=== PATIENT | male | born 1975 | race Caucasian/White ===

== ENCOUNTER 2022-05-18 13:37 | Emergency (ER) | payer SELFPAY ==
[2022-05-18 14:39] VITALS: BP 133/90; PULSE 97; RESP 16; TEMP 36.7; O2SAT 97; BMI 24.3
--- NOTE | 2022-05-18 16:43 | XRR_ITS ---
PROCEDURE INFORMATION: Exam: XR Right Ribs with PA Chest Exam date and time: 05/18/2022 4:52 PM Age: 46 years old Clinical indication: Other: RT. Anterior rib pain; Additional info: Right rib pain and cough TECHNIQUE: Imaging protocol: Radiologic exam of the Right ribs with PA chest. Views: 3 views COMPARISON: No relevant prior studies available. FINDINGS: Lungs: Unremarkable. No consolidation. Pleural spaces: Unremarkable. No pleural effusion. No pneumothorax. Heart/Mediastinum: Unremarkable. No cardiomegaly. Bones/joints: Unremarkable. XR/XR ribs RT mn 3V w CXR1V [id number] IMPRESSION: No acute findings.
--- NOTE | 2022-05-18 17:01 | W.ED.GENADLT ---
HPI - General Adult General: Chief complaint: General Medical Stated complaint: rib pain, SOB Time Seen by Provider: 05/18/22 17:01 History of Present Illness: 46-year-old male patient comes in today with complaints of right anterior rib pain. Patient reports movement exacerbates the pain. Patient is very guarded with movement of the chest wall. Patient denies any fever. Patient reports pains been going on for about 1 to 2 weeks, but has worsened over the last 2 days. Associated symptoms: Reports chest pain; Deny dyspnea Review of Systems Const: Denies: fever(s) Card: Reports: chest pain Resp: Denies: dyspnea Physical Exam Const: COMMON NORMALS: alert HENMT: COMMON NORMALS: normocephalic HEAD & SCALP: normocephalic Neck/C-Spine: COMMON NORMALS: full ROM Chest: CHEST: Yes tenderness (Right anterior chest wall pain) Resp: COMMON NORMALS: normal respiratory effort and clear to auscultation bilaterally AUSCULTATION: clear to auscultation bilaterally Cardio: COMMON NORMALS: regular rate and regular rhythm RATE: regular rate RHYTHM: regular rhythm GI: COMMON NORMALS: non-tender Extremity: COMMON NORMALS: normal to inspection and full ROM Neuro: SENSORIUM/ORIENTATION: Yes alert Skin: COMMON NORMALS: turgor normal GENERAL SKIN EXAM: turgor normal Course Vital Signs: Vital signs: Vital Signs Temperature 98.1 F 05/18/22 14:39 Pulse Rate 97 05/18/22 14:39 Respiratory Rate 16 05/18/22 14:39 Blood Pressure 133/90 05/18/22 14:39 Pulse Oximetry 97 05/18/22 14:39 Oxygen Delivery Ne thod 05/18/22 14:39 MDM - General Adult Medical Decision Making 46-year-old male patient comes in with right anterior chest wall pain. On exam lungs are clear to auscultation. Patient has tenderness in the right anterior chest wall with reproducible pain on palpation and movement such as deep inspiration. Vital signs are normal. Differential diagnosis includes but not limited to pleurisy, pneumonia, costochondritis, rib fracture. X-rays of the chest noted no pneumonia or rib fractures. Patient appears to have chest wall/costochondritis type pain. We will give a dose of dexamethasone 10 mg IM for inflammation. Patient was given 30 mg of ketorolac for pain. Patient be continued on diclofenac and hydrocodone for severe pain. Lab Data Radiology Impressions Ribs X-Ray 05/18/22 16:43 IMPRESSION: No acute findings. Discharge Plan Discharge Patient Disposition: Home Clinical Impression: Costochondritis Condition: Stable Prescriptions: New diclofenac sodium 75 mg tablet,delayed release (DR/EC) 75 mg PO BID Qty: 20 0RF hydrocodone-acetaminophen 5-325 mg tablet 1 tab PO Q6H PRN (Reason: pain (scale score 7-10)) Qty: 7 0RF Discharge Orders: Discharge ED (Routine); Ordered 05/18/22 Ordered By: Ed Blanchard Discharge Diet: Usual diet Discharge Activity: Increase activity as tolerated Patient Instructions: Costochondritis (ED), Opioid Safety Activity Restrictions/Additional Instructions: Activity as tolerated. Use acetaminophen to help control pain. Take diclofenac routinely twice a day for pain and inflammation. Use hydrocodone 1 tablet every 6 hours for severe pain. Follow-up with primary care as needed. Return to ED for worsening symptoms such as increased shortness of breath, fever greater than 100.4, blood in sputum or new concerns. Coding Level of Care Code ED Stone Splitter for Hannah Holland
[2022-05-18] MEDS: ketorolac 30 mg/mL INJ IM (17:27)
[2022-05-18] MEDS: dexamethasone 10 mg/mL INJ IM (17:27)
== END 2022-05-18 17:27 | disposition home or self-care (01) ==
PROVIDERS: Emergency Provider Nurse Practitioner Family
DX: M94.0 Chondrocostal junction syndrome [Tietze] (principal)
CPT/HCPCS: 71101; 96372; 99284; J1100; J1885